=== PATIENT | male | born 1955 | race Caucasian/White ===

== ENCOUNTER 2018-09-02 10:55 | Day surgery (SDC) | payer MEDICARE, OTHER ==
[2018-08-27 10:25] LABS: HEMATOCRIT 44.8 % (37.9-51.0); HEMOGLOBIN 15.6 g/dL (13.5-17.0); MEAN CORPUSCULAR HEMOGLOBIN 32.2 pg (27.0-33.4); MEAN CORPUSCULAR HGB CONC 34.9 g/dL (32.0-36.0); MEAN CORPUSCULAR VOLUME 93 fl (80-97); PLATELET COUNT 251 10^3/uL (150-450); RED BLOOD COUNT 4.85 10^6/uL (4.35-5.55); RED CELL DISTRIBUTION WIDTH 12.7 % (11.5-14.0); WHITE BLOOD COUNT 6.8 10^3/uL (4.0-10.5)
--- NOTE | 2018-08-27 12:31 | EKG REPORT ---
SEVERITY:- BORDERLINE ECG - SINUS RHYTHM NONSPECIFIC ST-T CHANGES- INFERIOR LEADS : Confirmed by: Fletcher Ivey MD 27-Aug-2018 12:30:41
[~2018-09-02 10:55] MED LIST: ACETAMINOPHEN 325 MG TABLET PO PRN; BUPIVACAINE HCL 0.25 % INJ/PF (2.5 MG/1 ML) 30 ML VIAL ONE; BUPIVACAINE INJ/PF LIPOSOME/PF 266 MG/20 ML SDV ONE; CEFAZOLIN 1 GM/D5W RTU 1 GM/50 ML RTUPB IV PRN; LACTATED RINGERS 1000 ML IV PRN; LIDOCAINE 0.5% INJ-PF (5 MG/ML) 50 ML SDV SUBCUT PRN
[2018-09-02] MEDS ORDERED: CEFAZOLIN 1 GM/D5W RTU 1 GM/50 ML RTUPB IV ONE (11:02)
--- NOTE | 2018-09-02 13:15 | Discharge Summary ---
Discharge Summary (SDC) - Discharge Final Diagnosis: Right inguinal hernia Date of Surgery: 09/02/18 Discharge Date: 09/02/18 Condition: Good Treatment or Instructions: [facility] [address], [place] [address] Discharge Instructions: Open Abdominal Procedures (Hernia, Bowel Surgery) 1.General Information: a. DO NOT DRIVE a car or operative machinery for 1-2 weeks or as long as taking pain medication. b. DO NOT consume alcohol, tranquilizers, sleeping medication, or any non- prescribed medication for 24 hours unless approved by your doctor or as long as taking pain medication. c. DO NOT make important decisions or sign any important papers for the first 24 hours after surgery. d. When discharged home the same day as surgery have a responsible person with you the first night. 2.Activity Restriction: _8 weeks; a. Avoid heavy lifting (> 10-15 lbs), straining abdominal muscles and sports, mowing lawn, vacuum spool cleaner hand and bending over a lot. b. Walking is important to avoid blood clots in the legs and deep breathing can prevent pneumonia. c. If it fine to go for walks, up and down steps, and ride in a car. 3.Treatment: a. You may shower in 24 hours shower then daily is fine, but you should not bathe in a tub or go swimming for 2 weeks. Do not remove skin glue. c. Do not use oils, powders, or lotion on your incision. 4.Medications: a. You may take prescription tablets for pain if needed, one every 6 hours (Toradol). c. You may resume all normal medications unless a change is specified by your doctors. 5.Diet: a. If going home the same day as surgery start with clear liquids, and if you do well then advance to normal foods low inf fat and protein. Smaller portion size may be fallon the first night. 6.Notify Physician If: a. Pain is not relieved by pain medication b. Persistent nausea and vomiting c. Chills, fever (above 101) d. Persistent bleeding or swelling at the operative site e. Unable to urinate for 6-8 hours f. Increased redness, drainage, or foul smelling discharge from incision 7. Follow Up Care: a. Please call our office to schedule an appointment with your doctor for 2 weeks. In the event of any postoperative problems or questions you may call our office during business hours or the On-Call surgeon through the bristle machine operator at [facility]. [facility] [phone] [facility] [phone] (Ask for the surgeon bridal consultant) b. I understand the instructions for my postoperative care as described above and a copy has been given to me. Witness Patient/Significant Other Date Prescriptions: Ketorolac Tromethamine [Toradol 10 mg Tablet] 10 mg PO Q6HP PRN #20 tablet PRN Reason: Referrals: MADELEINE TSE MD [Primary Care Provider] - Discharge Diet: As Tolerated Discharge Activity: Balance Activity w/Rest, No Lifting Over 10 Pounds, No Lifting/Push/Pulling, Walk Frequently Report the Following to Your Physician Immediately: Nausea, Vomiting, Increase in Pain, Fever over 101 Degrees, Unusual Bleeding, Redness, Warmth, Drainage- Foul Smelling
[2018-09-02] MEDS ORDERED: MIDAZOLAM 2 MG/2 ML INJ ONE (13:28)
[2018-09-02] MEDS ORDERED: FENTANYL CITRATE INJ/PF 100 MCG/2 ML AMPUL ONE ×2 (13:28→15:35)
[2018-09-02] MEDS ORDERED: PROPOFOL INJ 200 MG/20 ML VIAL IV ONE (13:29)
[2018-09-02] MEDS ORDERED: PROMETHAZINE HCL INJ 25 MG/1 ML VIAL IV PRN (14:06)
[2018-09-02] MEDS ORDERED: FENTANYL CITRATE INJ/PF 100 MCG/2 ML AMPUL IV PRN ×3 (14:06)
[2018-09-02] MEDS ORDERED: MORPHINE SULFATE 10 MG/ML INJ IV PRN (14:06)
[2018-09-02] MEDS ORDERED: MEPERIDINE HCL/PF INJ 25 MG/1 ML DISP.SYRIN IV PRN (14:06)
[2018-09-02] MEDS ORDERED: DIPHENHYDRAMINE HCL 50 MG/ML VIAL IV PRN (14:06)
[2018-09-02] MEDS ORDERED: OXYCODONE-ACETAMINOPHEN 5-325 MG TABLET PO PRN (15:31)
--- NOTE | 2018-09-02 15:51 | Operative Report ---
Operative Report DATE OF SURGERY: 09/02/18 PREOPERATIVE DIAGNOSIS: Right inguinal hernia POSTOPERATIVE DIAGNOSIS: Triple inguinal hernia; 2 direct hernias and 1 moderate sized indirect hernia; extensive scar tissue; OPERATION: 1. Right inguinal exploration. 2. Excision of cord lipoma. 3. Right inguinal floor reconstruction using large Bard polypropylene mesh plug and overlay mesh SURGEON: APOLINAR MACKENZIE 1ST TRAM INSPECTOR: BONIFACIO CHEUNG ANESTHESIA: GA TISSUE REMOVED OR ALTERED: Cord lipoma; fragment of right indirect inguinal hernia sac COMPLICATIONS: None ESTIMATED BLOOD LOSS: 20 cc INTRAOPERATIVE FINDINGS: See below PROCEDURE: The patient was seen in the preop holding area to the right inguinal area was marked. He was subsequently taken to the main operating room where general anesthesia was induced via LMA. The right inguinal area was previously clipped, prepped and draped with Betadine. Surgical plan surgical timeout were conducted. Markings were made on the skin for a standard right inguinal herniorrhaphy incision. The skin was anesthetized with quarter percent Marcaine as was the subcutaneous tissue. The incision was made with a #10 blade subcutaneous tissue divided with cautery, predictable superficial vein ligated between hemostats and 2-0 Vicryl ties. Conor's fascia divided deep tissue anesthetized with quarter percent Marcaine. The external oblique aponeurosis was opened along its length, extending to the external inguinal ring. Superior and inferior fascial flaps were raised. Of note the patient's tissue was very friable including the fascia which split easily. We now interrogated the contents of the inguinal canal. This took a fair amount of tedious dissection because of the significant amount of scar tissue creating a bile binding between all the tissues. I was able to mobilize all the contents of the inguinal canal and moved it around a Vincent drain. We are now able to identify a typical hernia sac. This was dissected free of all surrounding tissue including a mall cord lipoma. The cord lipoma was taken to its point of origin of the retroperitoneum, clamped divided and stump oversewn with a 2-0 Vicryl suture. We now spent a fair amount of time the hernia sac from the vas deferens. Unfortunately the vas was intimately connected with the wall of the hernia sac. I infected opened up the hernia sac and confirmed that in fact it was the peritoneal lining. I could feel the visceral structures and seen him as well. I can also palpate the floor the inguinal canal medially and there appeared to be 2 hernias in this area which will be described later. A photo was taken of the vas deferens intimately adhered to the wall of the inferior surface of the hernia sac. It was unclear whether the vas deferens attenuated into scar tissue, or there was even agenesis of it it was simply to Biobond into the wall of the thickened peritoneum. I elected to separate it from the peritoneum by creating a small sliver in the sac and letting the vas deferens draped inferiorly. I now closed the peritoneal sac with a 2-0 Vicryl suture and amputated the sac distally. We now turned our attention to the floor the inguinal canal which again had 2 small hernias both direct. These were medial to the inferior epigastric vessels. After they were dissected free they appeared to be approximately 2 cm in diameter for the medialmost hernia, and approximately 3 cm in diameter for the more lateral hernia. At this point given the patient's age, history of prostatectomy, scar tissue, etc., I felt that an overlay plug and mesh repair would be appropriate rather than trying to dissected out the retroperitoneum and place a double layer type mesh. We brought onto the field a large Bard polypropylene mesh with plug and overlay applying the to direct hernias. I sewed the mesh with approximately 4 stitches of 0 PDS to the floor the inguinal canal primarily at the conjoined tendon superiorly and the edge of Poupart's ligament inferiorly. We inserted the overlying mesh onto the floor the inguinal canal, covering the widened side and of the plug mesh. The overlay mesh was sewed to the conjoined tendon and Poupart's ligament with 0 PDS suture. The leaves of the overlay mesh were c ontoured to re-create the internal inguinal ring. At the conclusion of mesh insertion, we felt that we did adequately repaired the floor the inguinal canal considering the complexity of the findings including extensive scar tissue and multiple hernias, and the inability to safely get into the retroperitoneal space. External oblique aponeurosis and Conor's fascia closed with 2-0 Vicryl, skin with 3-0 Vicryl, and Dermabond glue. Patient tolerated procedure well, extubated, taken recovery in stable condition. The physician zoning assistant, Ms. Savage, provided assistance during this case by: Assisting with retracting tissue, instillation of local anesthesia and closure of skin incisions.
[2018-09-02] MEDS ORDERED: OXYCODONE-ACETAMINOPHEN 5-325 MG TABLET ONE (16:20)
[2018-09-02 17:31] VITALS: BP 117/65
== END 2018-09-02 17:42 | disposition home or self-care (01) ==
LOC: OROUT 10:55
PROVIDERS: ATTEND Surgery
DX: K40.90 Unilateral inguinal hernia, without obstruction or gangrene, not specified as recurrent (principal); I10 Essential (primary) hypertension; Z86.010 Personal history of colon polyps; Z79.899 Other long term (current) drug therapy
CPT/HCPCS: 93005; 36415 ×2; 84132; 85027; 88302 ×2; 88304 ×2; 93010; 49505; C1781; J2250; J0690; J3010; A9270; J2704; C9290; 830